=== PATIENT | female | born 1990 | race Caucasian/White ===

== ENCOUNTER 2024-11-06 10:56 | Outpatient (AMB) | payer BC, SELFPAY ==
--- NOTE | 2024-11-06 10:58 | A.OFFPC_ITS ---
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 Required: No Allergies No Known Allergies Allergy (Verified 11/06/24 11:32) Medication List - Last Reconciled 11/06/24 by SASHA Ward- buspirone mg PO 3XD propranolol mg PO DAILY PRN Tobacco use date assessed: 11/06/24 Dental Screening Dental Screen Date: 11/06/24 Did you have a dental visit in the last 12 months?: No Did you have a dental problem in the last 6 months where you did not have access to dental care?: No Was dental information given to patient?: Patient has dentist HPI HPI Comments History of Present Illness Details 33 y/o F with KATIE with OCD, obesity, PCO S, subclinical hypothyroid Social: 2 children, 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 Previous PCP: [facility] No records available - Active anxiety disorder with severe em etophobia and OCD behaviors exacerbated since last July correlating with her 's illness episode. - Anxiety managed with buspirone and hol istic interventions, with minimal success noted from medication. Has a counselor and prescriber. Advised to use magnesium and lavendar in addition to meds; has found this helpful. - Hx of subclinical hypothyroidism, prev iously managed by endo; not on meds. 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 - Recent development of an under-breast rash coinciding with physical fitness activities. Itchy and red. Using otc creams w/o relief. - Identified benign lipoma near the gall bladder area, clinically assessed with no current need for intervention at [facility] que w/ imaging. 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 - She breastfed both children for extend ed periods. - Active in [employer] and [employer]. - Engages in regular exercise by miryam estrada both virtual and in-person fitness classes multiple times per week. - According to her report, she maintains a very healthy and active lifestyle. Health Maintenance - Denies receiving a flu shot; up to jordi e on Tdap vaccination. - Pap smear is slightly overdue but foll ows routine examinations at [facility]. - Not currently due for any additional k nown screenings. Review of Systems - Psychiatric: Reports anxiety and OCD b ehaviors; denies psychosis. - Dermatologic: Reports rash under breas ts; denies other new skin changes. - Endocrine: Denies current symptoms of thyroid dysfunction; stable with PCOS. - General: Denies other significant medi saranya or surgical history; overall feels healthy aside from anxiety issues. - Skin: large mole on back, getting gaudencio er, bothersome, interested in removal Physical Exam General: Well developed, well nourished, in no acute distress. Appears stated age. Head: Normocephalic, atraumatic. Eyes: Pupils are equal, round and reactive to light and accommodation. Conjunctivae are clear. Vision grossly normal. Ears: TMs clear AU, EACS WNL Nose: Patent, without discharge. Neck: Supple, no adenopathy or thyromegaly. Breast: Rash noted under breasts, appears fungal. Lungs: Clear to auscultation bilaterally. No rales, rhonchi or wheeze noted. Good air flow in all bernabe. Heart: Regular rate and rhythm. No murmurs, click, rubs or gallops are noted. Abdomen: Bowel sounds present in all quadrants. The abdomen is soft, nontender, with no masses or organomegaly noted. No hernias are noted. RUQ is a palpable hard well circumscribed palpable area. : Deferred. 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 Pulses: Peripheral pulses are equal and palpable bilaterally. Extremities: No clubbing, cyanosis nor edema is noted. Neurologic: Gait and station normal. Cranial Nerves 2-12 intact. Motor strength grossly symmetrical and intact. No sensory loss. Balance normal. Skin: Rash noted under breasts, appears fungal. No other rashes, ulcers, or lesions noted. Turgor is good. Skin color is good. Hair and nails are without abnormalities. Psych: Normal eye contact, affect and mood appropriate, and normal interactions. Patient is alert and appropriate to context. Discussion Notes In today's visit, I discussed with Shandra the concerns about her anxiety, specifically emetophobia, and related OCD behaviors. We reviewed her current prescription of buspirone and adjustments made recently, along with the integration of a lavender supplement and magnesium which she reports as slightly helpful. Recommend cont f/u with prescriber and counselor. I explained the importance of regular use of any prescribed medication and remaining in contact with her prescribing psychiatrist for further adjustments and monitoring. We also discussed the benign lipoma, which is asymptomatic in RUQ. Refer to Gen Surg for mole removal; suggest having them eval the area in the RUQ. Also to get copy of imaging done at [facility] for further review. Subclinical hypothyroidism, once affecting fertility due to PCOS, is currently stable without medication. Regarding her under-breast rash, I explained the likely fungal nature and prescribed an antifungal powder. We touched on avoiding non-prescription creams and maintaining dry conditions. We reviewed her family health logistics with two small children and discussed potential strategies to prioritize self-care and healthcare visits when her schedule allows. With her fitness lifestyle in mind, I underscored the need to find balance where health appointments are part of the self-care process. Assessment and Plan 1. Anxiety Disorder: The patient continu es to experience significant anxiety disorder symptoms affecting daily life. The current management plan involves continued use of buspirone with additional support from lavender and magnesium supplements. Regular psychiatric follow-up is advised to monitor response and adjust therapy as needed. 2. Emetophobia and OCD Behaviors: These disorders are notably potent post the recent family illness episodes. Continued psychotherapy is significant, with exploration for further supportive measures like CBT, and potential psychiatric evaluation for medication adjustment. 3. fungal rash: Treatment for the suspec angela fungal rash beneath the breasts includes prescription antifungal powder. Effective use aimed to prevent future flare-ups without the use of non-prescriptive agents that could worsen the condition. 4. Lipoma, subclinical hypothyroid, RUQ mass & mole: TRoutine monitoring will continue given prior hypothyroidism. Consult w/ [facility] Gen surg for eval of RUQ and the mole on the back Patient Instructions - Follow up with a psychiatrist for ongo ing management of anxiety and medication adjustments as needed. - Use the prescribed antifungal powder a s directed three times a day for the rash. - Avoid using zzir-jqm-zdgclmx creams or powders on the rash. - Schedule and attend routine lab work a s advised to monitor thyroid function. - Engage with telehealth as accessible t o maintain consistent care. - Keep patient portal activated for [facility] medical information and communication. - Labs today - RTO 1 year CPE, sooner PRN Consent Patient was informed and verbally consented to the use of an ambient scribe for clinic note documentation during this visit. An additional 30 minutes was spent addressing the problem(s) noted at todays visit. This includes time spent before the visit reviewing the chart, time spent during the visit, and time spent after the visit on documentation reviewing laboratory results, diagnostic imaging, medications, performing a medically n ecessary evaluation, counseling on diagnoses, care coordination, ordering appropriate tests, ordering appropriate medications, review of tests performed by other providers, reporting test results with the patient, communication with other healthcare providers. [facility] Medical History (Updated 11/06/24 @ 15:31 by SASHA [facility]EN[facility]) Anxiety Thyroid disorder Surgical History (Updated 11/06/24 @ 11:08 by Stephani Agarwal MA) Previous section Family History (Updated 11/06/24 @ 11:10 by Stephani Agarwal MA) Maternal Grandmother HTN (hypertension) High cholesterol Diabetes Cardiovascular disease Paternal Grandmother Throat cancer Social History (Updated 11/06/24 @ 11:04 by Stephani Agarwal MA) Household Members: Spouse and Children Both parents involved: No Caregiver staying overnight: No Housing: House 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 1. Little interest or pleasure in doing things: not at all 2. Feeling down, depressed, or hopeless: not at all 3. Trouble falling or staying asleep, or sleeping too much: several days 4. Feeling tired or having little energy: not at all 5. Poor appetite or overeating: not at all 6. Feeling bad about yourself - or that you are a failure or have let yourself or your family down: not at all 7. Trouble concentrating on things, such as reading the newspaper or watching television: not at all 8. Moving or speaking so slowly that other people could have noticed. Or the opposite - being so fidgety or restless that you have been moving around a lot more than usual: not at all 9. Thoughts that you would be better off or of hurting yourself in some way: not at all Total score: 1 Depression Screening Interpretation: Negative Depression Screening Done: Yes 63514 - PHQ-9 Billing: Yes Source: Developed by Drs. Wilder Stark, Amaris Cowan, Bravo Connor and colleagues, with an educational bianca from [employer]. Thrive Questionnaire Date Thrive assessed: 11/06/24 I am a: Patient What is your living situation today?: I have a steady place to live Within the past 12 months, did the food you bought not last and you didn't have the money to get more?: Never true Within the past 12 months, did you worry whether your food would run out before you got money to buy more?: Never true Do you have trouble paying for medicines?: No Do you have trouble getting transportation to medical appointments?: No Do you have trouble paying your heating and electricity bill?: No Do you have trouble taking care of your child, family member or friend?: No Do you have trouble with day-to-day activities such as bathing, preparing meals, shopping, managing finances, etc.?: No Are you currently unemployed and looking for a job?: No Are you interested in more education?: No Please select the resources that you would like help with: None Currently or been in a relationship where the following occur: No concerns reported THRIVE Score: 0 AUDIT C Alcohol Use Questionnaire (AUDIT-C) 1. How often do you have a drink containing alcohol?: 2-4 times a month 2. How many drinks containing alcohol do you have on a typical day when you are drinking?: 1 or 2 3. How often do you have six or more drinks on one occasion?: Never Total Score: 2 Score Reviewed/Action Taken: Yes KATIE-7 AMB Questionnaire KATIE-7 Date KATIE - 7 assessed: 11/06/24 Feeling nervous, anxious, or on edge: 3 = Nearly every day Not being able to stop or control worryin = More than half the days Worrying too much about different things: 1 = Several days Trouble relaxin = Several days Being so restless that it is hard to sit still: 1 = Several days Becoming easily annoyed or irritable: 1 = Several days Feeling afraid as if something awful might happen: 0 = Not at all Total KATIE-7 score (0-4 normal; 5-9 mild; 10-14 moderate; 15-21 severe): 9 Source: Developed by Drs. Wilder Stark, Amaris oCwan, Bravo Connor and colleagues, with an educational bianca from [employer]. KATIE-7 Assessment Billing KATIE-7 Assessment Tool: KATIE-7 Assessment 35203 Physical exam (Primary Care) Vital Signs: Last Vital Signs Temp 97.2 F 11/06/24 11:04 Pulse 77 11/06/24 11:04 Resp 12 11/06/24 11:04 BP 107/66 11/06/24 11:04 Pulse Ox 99 11/06/24 11:04 Oxygen Delivery Method Room Air 11/06/24 11:04 BMI result Body Mass Index 34.6 BMI Assessment/Plan discussion: High BMI High, discussed plan: lifestyle Tobacco/Smoking Status: Tobacco use Status Tobacco use date assessed 11/06/24 11/06/24 11:06 Patient Tobacco Use Status Never used Tobacco 11/06/24 11:06 e-Cigarette/Vaping Use Never Used 11/06/24 11:06 PHQ-9: PHQ-9 Score PHQ-9: Total score 1 11/06/24 13:43 Depression Screening Interpretation: Negative Thrive Assessment: Date of Thrive Assessment Date Thrive assessed 11/06/24 11/06/24 10:58 Currently or been in a relationship where the following occur: No concerns reported Coding Level of Care Code Est Pt Level 4 (31205) New Pt Prev Care 18-39yr(28549 Diagnoses Encounter for general adult medical examination with abnormal findings Z00.01 Mixed obsessional thoughts and acts F42.2 Obsessive-compulsive disorder type: mixed obsessional thoughts and acts KATIE (generalized anxiety disorder) F41.1 BMI 34.0-34.9,adult Z68.34 Obesity (BMI 30.0-34.9) E66.811 PCOS (polycystic ovarian syndrome) E28.2 Influenza vaccination declined Z28.21 Skin lesion L98.9 Abdominal mass, RUQ (right upper quadrant) R19.01 Subclinical hypothyroidism E03.8 Fungal rash of torso B36.9 Encounter to establish care with new provider Z76.89 Additional Codes KATIE-7 Assessment Billing - KATIE-7 Assessment Tool: KATIE-7 Assessment 77913 ([id number]) PHQ-9 - 30065 - PHQ-9 Billing: Yes ([id number]) Assessment & Plan Assessment & Plan (1) Encounter for general adult medical examination with abnormal findings: Code(s): Z00.01 - Encounter for general adult medical examination with abnormal findings (2) OCD (obsessive compulsive disorder): Code(s): F42.9 - Obsessive-compulsive disorder, unspecified Category: Medical Qualifiers: Obsessive-compulsive disorder type: mixed obsessional thoughts and acts Qualified Code(s): F42.2 - Mixed obsessional thoughts and acts (3) KATIE (generalized anxiety disorder): Code(s): F41.1 - Generalized anxiety disorder Category: Medical (4) BMI 34.0-34.9,adult: Code(s): Z68.34 - Body mass index [BMI] 34.0-34.9, adult Category: Medical (5) Obesity (BMI 30.0-34.9): Code(s): E66.811 - Obesity, class 1 Category: Medical (6) PCOS (polycystic ovarian syndrome): Code(s): E28.2 - Polycystic ovarian syndrome Category: Medical (7) Influenza vaccination declined: Code(s): Z28.21 - Immunization not carried out because of patient refusal Category: Medical (8) Skin lesion: Comment: left backn Code(s): L98.9 - Disorder of the skin and subcutaneous tissue, unspecified Category: Medical (9) Abdominal mass, RUQ (right upper quadrant): Comment: reports imaging done at [facility] Code(s): R19.01 - Right upper quadrant abdominal swelling, mass and lump Category: Medical (10) Subclinical hypothyroidism: Code(s): E03.8 - Other specified hypothyroidism Category: Medical (11) Fungal rash of torso: Code(s): B36.9 - Superficial mycosis, unspecified (12) Encounter to establish care with new provider: Code(s): Z76.89 - Persons encountering health services in other specified circumstances Plan . Orders: Orders Comprehensive Met. Panel Today E28.2 - Polycystic ovarian syndrome, F41.1 - Generalized anxiety disorder Hemoglobin A1c Today E28.2 - Polycystic ovarian syndrome, F41.1 - Generalized anxiety disorder Microalbumin, Random (w Creat) Today E28.2 - Polycystic ovarian syndrome, F41.1 - Generalized anxiety disorder Lipid Panel Today E28.2 - Polycystic ovarian syndrome, F41.1 - Generalized anxiety disorder TSH reflex Free T4 Today E28.2 - Polycystic ovarian syndrome, F41.1 - Generalized anxiety disorder Vitamin B12 and Folate Today E28.2 - Polycystic ovarian syndrome, F41.1 - Generalized anxiety disorder Vitamin D 25-OH Total Today E28.2 - Polycystic ovarian syndrome, F41.1 - Generalized anxiety disorder Referrals General Surgery Referral L98.9 - Disorder of the skin and subcutaneous tissue, unspecified, R19.01 - Right upper quadrant abdominal swelling, mass and lump Medications: New nystatin 1 appl topical BID PRN 30 grams 3RF rash Patient Instructions: Health screenings for women You should visit your health care provider from time to time, even if you are healthy. The purpose of these visits is to: Screen for medical issues Assess your risk for future medical problems Encourage a healthy lifestyle Update vaccinations and other preventive care services Help you get to know your provider in case of an illness Information Even if you feel fine, you should still see your provider for regular checkups. These visits can help you avoid problems in the future. For example, the only way to find out if you have high blood pressure is to have it checked regularly. High blood sugar and high cholesterol levels also may not have any symptoms in the early stages. A simple blood test can check for these conditions. There are specific times when you should see your provider or receive specific health screenings. The [place] Preventive Services Task Force publishes a list of recommended screenings. Below are screening guidelines for women ages 18 to 39. BLOOD PRESSURE SCREENING Your blood pressure should be checked at least once every 3 to 5 years if: Your blood pressure is in the normal range (top number less than 120 mm Hg and bottom number less than 80 mm Hg) You don't have risk factors for high blood pressure Ask your provider if you need your blood pressure checked more often if: The top number is 120 to 129 mm Hg or the bottom number is 70 to 79 mm Hg You have diabetes, heart disease, kidney problems, are overweight, or have certain other health conditions You have a first-degree relative with high blood pressure You are Black You had high blood pressure during a If the top number is 130 mm Hg or greater or the bottom number is 80 mm Hg or greater, this is considered stage 1 hypertension. Schedule an appointment with your provider to learn how you can reduce your blood pressure. Watch for blood pressure screenings in your area. Ask your provider if you can stop in to have your blood pressure checked. BREAST CANCER SCREENING Experts do not agree about the benefits of breast self-exams in finding breast cancer or saving lives. Talk to your provider about what is best for you. A screening mammogram is not recommended for most women under age 40. Your provider may discuss and recommend mammograms, MRI scans, or ultrasounds if you have an increased risk for breast cancer, such as: A mother or sister who had breast cancer at a young age (most often starting screening earlier than the age the close relative was diagnosed) You carry a high-risk genetic marker CERVICAL CANCER SCREENING Cervical cancer screening should start at age 21 years unless your provider advises otherwise. After the first test: Women ages 21 through 29 should have a Pap test every 3 years. Exoprts do not agree on whether HPV testing is recommended for this age group. Women ages 30 through 65 should be screened with either a Pap test every 3 years or the HPV test every 5 years or both tests every 5 years (called cotesting ). Women who have been treated for precancer (cervical dysplasia) should continue to have Pap tests for 20 years after treatment or until age 65, whichever is longer. If you have had your uterus and cervix removed (total hysterectomy), and you have not been diagnosed with cervical cancer or precancer (high grade cervical neoplasia), you do not need cervical cancer screening. CHOLESTEROL SCREENING Cholesterol screening should begin at: Age 45 for women with no known risk factors for coronary heart disease Age 20 for women with known risk factors for coronary heart disease Repeat cholesterol screening should take place: Every 5 years for women with normal cholesterol levels More often if changes occur in lifestyle (including weight gain and diet) More often if you have diabetes, heart disease, kidney problems, or certain other conditions DIABETES SCREENING You should be screened for diabetes starting at age 35 and then repeated every 3 years if you have no risk factors for diabetes. Screening may need to start earlier and be repeated more often if you have other risk factors for diabetes, such as: You have a first degree relative with diabetes. You are overweight or have obesity. You have high blood pressure, prediabetes, or a history of heart disease. Screening for diabetes should be done if you are planning to become and you are overweight and have other risk factors such as high blood pressure. DENTAL EXAM Go to the dentist once or twice every year for an exam and cleaning. Your dentist will evaluate if you need more frequent visits. EYE EXAM Have an eye exam every 5 to 10 years before age 40. If you have vision problems, have an eye exam every 2 years or more often if recommended by your provider. You should have an eye exam that includes an examination of your retina (back of your eye) at least every year if you have diabetes. IMMUNIZATIONS Commonly needed vaccines include: Flu shot: get one every year. COVID-19 vaccine: ask your provider what is best for you. Tetanus-diphtheria and acellular pertussis (Tdap) vaccine: have one at or after age 19 as one of your tetanus-diphtheria vaccines if you did not receive it as an adolescent. Tetanus-diphtheria: have a booster (or Tdap) every 10 years. Varicella vaccine: receive 2 doses if you never had chickenpox or the varicella vaccine. Hepatitis B vaccine: receive 2, 3, or 4 doses, depending on your exact circumstances. Measles, mumps, and rubella (MMR) vaccine: receive 1 to 2 doses if you are not already immune to MMR. Your provider can tell you if you are immune. Ask your provider about the human papillomavirus (HPV) vaccine if: You have not received the HPV vaccine in the past You have not completed the full vaccine series (you should catch up on this shot) Ask your provider if you should receive other immunizations if you have certain health problems that increase your risk for some diseases such as pneumonia. INFECTIOUS DISEASE SCREENING Women who are sexually active should be screened for chlamydia and gonorrhea up until age 25. Women 25 years and older should be screened for chlamydia and gonorrhea if at high risk. Screening for hepatitis C: All adults ages 18 to 79 should get a one-time test for hepatitis C. people should be screened at every . Screening for human immunodeficiency virus (HIV): All people ages 15 to 65 should get a one-time test for HIV. Depending on your lifestyle and medical history, you may also need to be screened for infections such as syphilis and HIV, as well as other infections. PHYSICAL EXAM All adults should visit their provider from time to time, even if they are healthy. The purpose of these visits is to: Screen for disease Assess your risk of future medical problems Encourage a healthy lifestyle Update your vaccinations and other preventive care services Maintain a relationship with a provider in case of an illness Your height, weight, and BMI should be checked at every exam. During your exam, your provider may ask you about: Depression and anxiety Diet and exercise Alcohol and tobacco use Safety issues, such as using seat belts, smoke detectors, and intimate partner violence Your medicines and risk for interactions SKIN SELF-EXAM Your provider may check your skin for signs of skin cancer, especially if you're at high risk, such as if you: Have had skin cancer before Have close relatives with skin cancer Have a weakened immune system OTHER SCREENING Talk with your provider about colon cancer screening if you have a strong family history of colon cancer or polyps, or if you have had inflammatory bowel disease or polyps yourself. Routine bone density screening of women under 40 is not recommended. Walk-In Care (Urgent Care): We Make it Easy Walk-in for urgent medical issues such as: ? Seasonal Allergies ? Insect Bites ? Cough ? Diarrhea ? Acute Asthma Attacks ? Back, Knee or Joint Pain ? Ear Infection ? Fever without a Rash ? Headaches ? Nausea ? Kibler Eye, Rash or Skin Irritation ? Sore Throat ? Sports Physicals ? Vomiting Most insurances are accepted. Patients do not need to be part of the [facility] to seek care at the walk-in clinic. Locations [facility] Claudia Benavides, [place] [address] ? [phone] [facility] Walk-In Care in [place] provides services to ages 18 and over. Open Tuesday-Tuesday: 8 a.m. to 5 p.m. and Tuesday: 9 a.m. to 3 p.m.* *Hours may vary due to staffing availability. To confirm Walk-In Care hours in [place], please call [phone]. [address] [place] [address] ? [phone] [facility] Walk-In Care in [place] provides services to ages 12 and over. Open Tuesday-Tuesday: 8 a.m. to 5 p.m. Hours may vary due to staffing availability. To confirm Walk-In Care hours in [place], please call [phone]. LABORATORY SERVICES: [facility] Lab ? Primary Location [address] [place] [address] Tuesday through Tuesday 6:00 AM ? 5:00 PM Tuesday 7:00 AM ? 11:00 AM* [phone] The [facility] Lab is centrally located near the front entrance of the [facility] for easy outpatient access. Convenient parking is provided for outpatients. *Hours may vary due to staffing availability. To confirm Laboratory hours for any location, please call [phone]. Offsite Location For your convenience, we offer offsite laboratory draw stations at the following locations: [address] [place] [address] ? [address], [address] Tuesday through Tuesday 7:30 AM ? 1:00 PM* [phone] *Hours may vary due to staffing availability. To confirm Laboratory hours for any location, please call [phone]. [place] ? [address] Tuesday through Tuesday 6:00 AM ? 3:30 PM* Tuesday 6:30 AM ? 3 PM* [phone] *Hours may vary due to staffing availability. To confirm Laboratory hours for an y location, please call [phone] [place] [address] Tuesday through Tuesday 7:30 AM ? 4:00 PM* [phone] *Hours may vary due to staffing availability. To confirm Laboratory hours for any location, please call [phone] [place], [place] [address]esday through 9:00 AM ? 4:00 PM* *Hours may vary due to staffing availability. To confirm Laboratory hours for any location, please call [phone]. Appointments are not necessary. Walk-ins are welcome. Like all the departments throughout the [facility], our Lab undergoes frequent reviews to ensure the quality and accuracy of test results, and our staff takes special pride in its status as a nationally accredited facility. Patient Portal: ONE PATIENT. ONE RECORD. BETTER CARE. [facility] has a fully integrated, cutting- edge mobile electronic health information system that has revolutionized the way we care for our patients and manage our organization. This system improves communication and coordination enabling us to provide safe, higher-quality care, and an overall positive experience for staff and patients. Our first priority, as always, is to deliver the highest quality care possible. The system is running in the background supporting that priority. This portal is for all [facility] services and practices. If you are experiencing any technical difficulties with enrolling or logging into the Patient Portal please complete the [facility] Patient Portal Technical Support Form. [facility] now offers a new secure on-line interactive tool for patients to review their health information ? Patient Portal. This interactive web portal will enable patients and their families to take an active role in their care by providing easy, secure access to their health information via the internet. The Patient Portal provides patients with instant access to their health information, including laboratory results, medications, allergies, demographic information, visit history, and more. In addition to managing their own care, parents and health care proxies with authorized consent will appreciate the ability to access the records of those individuals for whom they provide care. Please note: if you wish to gain access (Proxy) to another patient?s portal, you will be required to come to the Medical Records Department in person at [facility]. Both the patient giving proxy access and the proxy will need to provide photo identification and complete the appropriate authorization. The Patient Portal also allows track their appointments online. The [facility] Patient Portal also saves patients time by allowing them to submit updates to their demographic and contact information prior to their visits. Portal email notifications will also alert patients to any new activity on their portal, such as test results and new appointments. In order to initially enroll in the [facility] Patient Portal, you will need to enter some required information including the following: ? your [facility] Medical Record number ? your personal home email address ? name ? date of Please note: In order to enroll in the [facility] Patient Portal, we need to have your email address on file in your electronic medical record. The email address needs to be specific for one person (yourself) in order for your Portal enrollment to be successful. You can update your email address in person with our Registration staff when you are registering for a hospital visit. Otherwise, you will need to come to the Health Information Management (Medical Records) Department at [facility]. We are open from Tuesday ? Tuesday from 7:30 a.m. ? 4:30 p.m. You will be required to present a photo id. Once you have successfully enrolled in the Patient Portal, you will receive a one-time user id and password for the Portal, sent to your email address. This will allow you to log into the Patient Portal within 99 hrs and reset your own logon id and password, and define personal security questions. Once your permanent login and password have been set, you can log into the [facility] Patient Portal at any time via the blue button above or from the Portal Logon button on any page of the [facility] website. [facility] encourage all of our patients to enroll in Patient Portal as it presents a valuable opportunity for patients and their families to actively participate in their care and stay healthy Welcome to [facility]. We look forward to working with you.
[2024-11-06 11:04] VITALS: BP 107/66; PULSE 77; RESP 12; TEMP 36.2; O2SAT 99; BMI 34.6
== END 2024-11-06 11:55 | disposition home or self-care (01) ==
LOC: HO.HMCFM 10:56
PROVIDERS: PCP Nurse Practitioner Family; Visit Provider Nurse Practitioner Family
DX: Z00.01 Encounter for general adult medical examination with abnormal findings (principal); F42.2 Mixed obsessional thoughts and acts; F41.1 Generalized anxiety disorder; Z68.34 Body mass index [BMI] 34.0-34.9, adult; E66.811 Obesity, class 1; E28.2 Polycystic ovarian syndrome; Z28.21 Immunization not carried out because of patient refusal; L98.9 Disorder of the skin and subcutaneous tissue, unspecified; R19.01 Right upper quadrant abdominal swelling, mass and lump; E03.8 Other specified hypothyroidism; B36.9 Superficial mycosis, unspecified

== ENCOUNTER → 2024-11-06 10:56 | Outpatient (BNVA) | payer BC, SELFPAY | PROVIDERS: PCP Nurse Practitioner Family; Visit Provider Nurse Practitioner Family | DX: Z00.01 Encounter for general adult medical examination with abnormal findings (principal); Z76.89 Persons encountering health services in other specified circumstances; F42.2 Mixed obsessional thoughts and acts; F41.1 Generalized anxiety disorder; E66.811 Obesity, class 1; Z68.34 Body mass index [BMI] 34.0-34.9, adult; E28.2 Polycystic ovarian syndrome; L98.9 Disorder of the skin and subcutaneous tissue, unspecified; R19.01 Right upper quadrant abdominal swelling, mass and lump; E03.8 Other specified hypothyroidism; B36.9 Superficial mycosis, unspecified; Z28.21 Immunization not carried out because of patient refusal | CPT/HCPCS: 96127 ==